=== PATIENT | female | born 1995 | race Caucasian/White ===

== ENCOUNTER 2016-12-01 08:49 | Emergency (ER) | payer OTHER ==
[2016-12-01 08:54] VITALS: BMI 27.1
[2016-12-01] MEDS ORDERED: LACTATED RINGERS SOLUTION 500 ML IV ONE (09:30)
[2016-12-01 10:21] VITALS: BP 108/63; PULSE 97; TEMP 98.4
[2016-12-01] MEDS ORDERED: LACTATED RINGERS SOLUTION 1,000 ML IV SCH (10:45)
[2016-12-01 10:58] LABS: URINE APPEARANCE CLEAR; URINE BILIRUBIN NEGATIVE (NEGATIVE); URINE BLOOD NEGATIVE (NEGATIVE); URINE COLOR YELLOW; URINE GLUCOSE (UA) NEGATIVE (NEGATIVE); URINE KETONE NEGATIVE (NEGATIVE); URINE LEUK ESTERASE NEGATIVE (NEGATIVE); URINE NITRITE NEGATIVE (NEGATIVE); URINE PROTEIN NEGATIVE (NEGATIVE); URINE UROBILINOGEN NEGATIVE E.U./dl (0.2-1.0)
== END 2016-12-01 12:25 | disposition home or self-care (01) ==
LOC: JER 08:49
DX: O26.893 Other specified pregnancy related conditions, third trimester (principal); Z3A.32 32 weeks gestation of pregnancy; R10.9 Unspecified abdominal pain; Y04.2XXA Assault by strike against or bumped into by another person, initial encounter
CPT/HCPCS: 76819-TC; 81003; 99281-25

== ENCOUNTER 2022-09-30 08:55 | Emergency (ER) | payer OTHER ==
[2022-09-30 09:04] VITALS: BMI 26.4
[2022-09-30] MEDS ORDERED: ACETAMINOPHEN 500 MG TABLET (FP) PO ONE (09:06)
[2022-09-30] MEDS ORDERED: DEXAMETHASONE SOD PHOSPHATE 10 MG/1 ML VIAL IM ONE (09:06)
[2022-09-30] MEDS ORDERED: AMOX TR/POT CLAV 875MG/125MG TABLETS (FP) PO ONE (09:07)
[2022-09-30] MEDS ORDERED: DEXAMETHASONE SOD PHOSPHATE 10 MG/1 ML VIAL ONE (09:08)
[2022-09-30] MEDS ORDERED: ACETAMINOPHEN 500 MG TABLET (FP) ONE (09:08)
[2022-09-30] MEDS ORDERED: AMOX TR/POT CLAV 875MG/125MG TABLETS (FP) ONE (09:13)
[2022-09-30 10:45] VITALS: BP 95/64; PULSE 84; RESP 18; TEMP 98.5
[2022-09-30 11:27] LABS: THROAT:GRP A STREP NOT DETECTED (NOTDETECTED)
== END 2022-09-30 10:52 | disposition home or self-care (01) ==
LOC: JERFT 08:55
PROC: 3E023GC Introduction of Other Therapeutic Substance into Muscle, Percutaneous Approach (ICD-10-PCS; principal; 2022-09-30)
DX: J03.80 Acute tonsillitis due to other specified organisms (principal); R50.81 Fever presenting with conditions classified elsewhere; R07.0 Pain in throat; M79.10 Myalgia, unspecified site; Z20.822 Contact with and (suspected) exposure to COVID-19
CPT/HCPCS: 0241U-QW; 87651; 99284-25; J1100